=== PATIENT | female | born 1990 | race Two or more races ===

== ENCOUNTER 2024-06-04 09:45 | Emergency (ER) | payer OTHER ==
[~2024-06-04] VITALS: Ht 152.4 cm; Wt 63.5 kg
[2024-06-04] MEDS ORDERED: ZOFRAN8 MG PO (10:21)
[2024-06-04] MEDS ORDERED: PRENATAL MULTI1 EAC3 PO (10:22)
[2024-06-04 11:35] LABS: URINE APPEARANCE Cloudy; URINE BILIRRUBIN Negative (NEGATIVE); URINE BLOOD Large; URINE COLOR Dark Yellow; URINE GLUCOSE Negative (NEGATIVE); URINE KETONE Negative (NEGATIVE); URINE LEUKOCYTE Small; URINE NITRATE Negative; URINE PROTEIN 30 (NEGATIVE); URINE UROBILINOGEN 0.2 E.U./dl
[2024-06-04 11:38] LABS: HEMATOCRIT 38.5 % (36.0-45.00); HEMOGLOBIN 13.1 g/dL (12.0-15.00); MEAN CELL VOLUME 87.8 fL (80.00-100.00); MEAN CORPUSCULAR HEMOGLOBIN 29.9 pg (27.00-32.0); PLATELET COUNT 218 K/uL (150-450); RED BLOOD COUNT 4.38 M/uL (4.00-6.00); RED CELL DISTRIBUTION WIDTH 13.1 % (11.5-14.5)
[2024-06-04 11:40] LABS: URINE BACTERIA 2474.8 uL (0.0-1933); URINE EPITHELIAL CELLS 61.4 uL (0.0-38.8); URINE RBC 512.7 uL (0.0-20.8); URINE WBC 21.5 uL (0.0-23.2)
[2024-06-04 11:55] LABS: URINE CAST 0.73 uL (0.0-1.40); URINE MUCUS MODERATE
[2024-06-04 12:31] LABS: ALBUMIN 3.1 gm/dL (3.4-5.0); BILIRUBIN TOTAL 0.22 mg/dL (0.3-1.2); CALCIUM 9.3 mg/dL (8.5-10.1); CREATININE SERUM 0.65 mg/dL (0.55-1.02); GFR 103.72; GLOBULINA 4.5 G/DL (2.4-3.5); POTASSIUM 3.77 mEq/L (3.5-5.1); TOTAL PROTEIN 7.6 gm/dL (6.4-8.2)
[2024-06-04] MEDS ORDERED: AMOX1TAB5 PO (12:37)
[2024-06-04] MEDS ORDERED: PEPCID AC20 MG PO (12:37)
== END 2024-06-04 12:46 | disposition home or self-care (01) ==
LOC: ER 09:47
PROVIDERS: General Practice
DX: O20.8 Other hemorrhage in early pregnancy (principal); Z3A.10 10 weeks gestation of pregnancy; N93.9 Abnormal uterine and vaginal bleeding, unspecified

== ENCOUNTER → 2024-06-19 13:40 | Outpatient (CLI) | payer OTHER ==
[~2024-06-19 13:40] MED LIST: AMOX1TAB5 PO; PEPCID AC20 MG PO; PRENATAL MULTI1 EAC3 PO; ZOFRAN8 MG PO
== END | disposition home or self-care (01) ==
LOC: PRENATAL 13:40
PROVIDERS: ATTEND Obstetrics & Gynecology Maternal & Fetal Medicine
DX: O36.80X0 Pregnancy with inconclusive fetal viability, not applicable or unspecified (principal); Z36.82 Encounter for antenatal screening for nuchal translucency; O09.529 Supervision of elderly multigravida, unspecified trimester; Z14.8 Genetic carrier of other disease; Z3A.12 12 weeks gestation of pregnancy

== ENCOUNTER 2024-08-14 07:29 | Outpatient (CLI) | payer OTHER | END 2024-08-14 07:30 | disposition home or self-care (01) | LOC: PRENATAL 07:29 | PROVIDERS: ATTEND Obstetrics & Gynecology Maternal & Fetal Medicine | DX: O44.00 Complete placenta previa NOS or without hemorrhage, unspecified trimester (principal); O09.529 Supervision of elderly multigravida, unspecified trimester; Z3A.21 21 weeks gestation of pregnancy ==

== ENCOUNTER 2024-10-09 09:01 | Outpatient (CLI) | payer OTHER | END 2024-10-09 09:04 | disposition home or self-care (01) | LOC: PRENATAL 09:01 | PROVIDERS: ATTEND Obstetrics & Gynecology Maternal & Fetal Medicine | DX: O44.00 Complete placenta previa NOS or without hemorrhage, unspecified trimester (principal); O09.529 Supervision of elderly multigravida, unspecified trimester; Z3A.29 29 weeks gestation of pregnancy ==